=== PATIENT | female | born 1965 ===

== ENCOUNTER 2017-09-01 09:22 | Inpatient (IN) | payer OTHER ==
[2017-09-01] VITALS (12 sets, daily range): BP systolic 96–125; BP diastolic 56–64
[~2017-09-01] VITALS: Ht 174 cm; Wt 75.7 kg
[~2017-09-01 09:22] MED LIST: ceFAZolin sod 2 GM in D5W 110 ML IVPB ONE
[2017-09-01] MEDS ORDERED: WELLBUTRIN SR100 MG ORAL (10:07)
[2017-09-01] MEDS ORDERED: TOPIRAMATE100 MG ORAL (10:07)
[2017-09-01] MEDS ORDERED: TRAMADOL HCL50 MG ORAL (10:07)
[2017-09-01] MEDS ORDERED: IMITREX50 MG ORAL (10:07)
--- NOTE | 2017-09-01 11:32 | Pre-Procedure Note/Attestation ---
Pre-Procedure Note/Attestation Complete Prior to Procedure Procedure Narrative: EXTREME LATERAL INTERBODY FUSION L12 AND L23 WITH POSTERIOR INSTRUMENTATION AND FUSION Indications for Procedure Pre-Operative Diagnosis: THORACOLUMBAR KYPHOSIS AND SPONDYLOSIS, S/P PREVIOUS LUMBAR DECOMPRESION Attestation I attest that I discussed the nature of the procedure; its benefits; risks and complications; and alternatives (and the risks and benefits of such alternatives ), prior to the procedure, with the patient (or the patient's legal international account representative). I attest that, if there was a reasonable possibility of needing a blood transfusion, the patient (or the patient's legal international account representative) was given the [place] [facility] [employer] [facility] standardized written summary, pursuant to the [place] Blood Safety Act ([place] Health and Safety Code # 1645, as amended). I attest that I re-evaluated the patient just prior to the surgery and that there has been no change in the patient's H&P, except as documented below: ANNABEL MILLS Sep 01, 2017 11:32
[2017-09-01] MEDS ORDERED: Dexamethasone 4mg/ml vial ONE (11:44)
[2017-09-01] MEDS ORDERED: LR 1000ml 1,000 ML IVLG SCH (11:46)
--- NOTE | 2017-09-01 11:46 | Anethesia Preoperative Eval ---
Anesthesia Pre-op PMH/ROS General Date of Evaluation: Sep 01, 2017 Time of Evaluation: 12:34 Anesthesiologist: Cipriano ASA Score: ASA 2 Mallampati Score Class I : Soft palate, uvula, fauces, pillars visible Class II: Soft palate, uvula, fauces visible Class III: Soft palate, base of uvula visible Class IV: Only hard plate visible Mallampati Classification: Class I Surgeon: Steven Diagnosis: Back Pain Surgical Procedure: L1-2, L2-3 Exreme Lateral Fusion, Decompression Anesthesia History: none Family History: no anesthesia problems Allergies: Coded Allergies: No Known Allergies (Unverified , 08/29/17) Medications: see eMAR Past Medical History Neurologic/Psychiatric: Reports: other - Migranes PSxH Narrative: Cholecystectomy, Spine SX, Cervical Cyst SX Anesthesia Pre-op Phys. Exam Physician Exam Last Vital Signs Date Time Temp Pulse Resp B/P (MAP) Pulse Ox O2 Delivery O2 Flow Rate FiO2 09/01/17 10:31 98.2 52 20 112/62 98 Room Air 98.2 Constitutional: NAD Neurologic: CN 2-12 intact Cardiovascular: RRR Respiratory: CTA Gastrointestinal: S/NT/ND Airway Exam Mallampati Classification ASA 2 Mallampati Score: Class I MO: full ROM: full Teeth: intact Anesthesia Pre-op A/P Labs Urine Test Test 09/01/17 09:35 Urine HCG, Qualitative Negative (NEGATIVE) Risk Assessment & Plan Assessment: ASA 2 Plan: GA, BIS, GlideScope Status Change Before Surgery: No Pre-Antibiotics Dru Grams Ancef IV Given Within 1 Hr of Incision: Yes Time Given: 13:11 Danis Howell MD Sep 01, 2017 11:46
[2017-09-01] MEDS ORDERED: Midazolam 2mg/2ml Inj ONE (11:53)
[2017-09-01] MEDS ORDERED: fentaNYL 100 mcg/2 mL IV ONE ×3 (11:54→17:18)
[2017-09-01] MEDS ORDERED: Lidocaine 1% Plain 30 ml INJ ONE ×3 (11:57→16:41)
[2017-09-01] MEDS ORDERED: Sodium Chloride 10ml vial INJ ONE ×2 (11:58→17:58)
[2017-09-01] MEDS ORDERED: Labetalol 5mg/ml 20ml vial IV PRN (12:00)
[2017-09-01] MEDS ORDERED: Atropine Inj 1mg/10ml Syr IV PRN (12:00)
[2017-09-01] MEDS ORDERED: Acetaminophen (Non formulary) 100 ML IV ONE (12:00)
[2017-09-01] MEDS ORDERED: Ketorolac 30mg Inj IV PRN ×2 (12:00)
[2017-09-01] MEDS ORDERED: DiphenhydrAMINE 50mg/ml Inj IVP PRN (12:00)
[2017-09-01] MEDS ORDERED: HYDROcodone/Acetamin 7.5/325 tab ORAL PRN ×2 (12:00→22:00)
[2017-09-01] MEDS ORDERED: Midazolam 2mg/2ml Inj IVP PRN (12:00)
[2017-09-01] MEDS ORDERED: Norco 5mg/325mg tab ORAL PRN ×2 (12:00→22:00)
[2017-09-01] MEDS ORDERED: oxyCODONE HCL/Acetaminophen 5/325mg ORAL PRN (12:00)
[2017-09-01] MEDS ORDERED: fentaNYL 100 mcg/2 mL IV PRN (12:00)
[2017-09-01] MEDS ORDERED: LORazepam Inj 2mg/ml 1ml IV PRN (12:00)
[2017-09-01] MEDS ORDERED: Lidocaine 1% MPF 10mg/ml 5ml ONE (12:04)
[2017-09-01] MEDS ORDERED: Thrombin 5000 units TOPIC ONE (12:21)
[2017-09-01] MEDS ORDERED: Bacitracin 50000 Units Vial ONE (12:21)
[2017-09-01] MEDS ORDERED: Bupivacaine 0.5% Inj 30 ml vial INJ ONE (12:21)
[2017-09-01] MEDS ORDERED: Sterile Water Irrig 1000ml IRRIG ONE (12:30)
[2017-09-01] MEDS ORDERED: NS Irrig 1000ml ONE (12:30)
[2017-09-01] MEDS ORDERED: Zemuron 50mg/5ml Inj IV ONE (13:11)
--- NOTE | 2017-09-01 14:11 | Immediate Post-Op Evaluation ---
Immediate Post-Op Evalulation Immediate Post-Op Evalulation Procedure: L1-2, L2-3 Exreme Lateral Fusion, Decompression Date of Evaluation: Sep 01, 2017 Time of Evaluation: 20:20 IV Fluids: 1500 LR Blood Products: 0 Estimated Blood Loss: 150 Urinary Output: 300 Blood Pressure Systolic: 102 Blood Pressure Diastolic: 54 Pulse Rate: 96 Respiratory Rate: 16 O2 Sat by Pulse Oximetry: 100 Temperature (Fahrenheit): 98.4 Pain Score (1-10): 3 Nausea: No Vomiting: No Complications 0 Patient Status: awake, reacts, patent, extubated, none Hydration Status: adequate Dru Grams Ancef IV Given Within 1 Hr of Incision: Yes Time Given: 13:11 Danis Howell MD Sep 01, 2017 14:11
[2017-09-01] MEDS ORDERED: Ketamine 500mg Inj ONE (17:50)
--- NOTE | 2017-09-01 18:45 | Operative Note - Dictated ---
DATE OF OPERATION: 09/01/2017 SURGEONS: 1. Angel Morrison M.D. (for the approach). 2. Román Harris M.D. (for the spine procedure). ANESTHESIOLOGIST: Danis Howell M.D. ANESTHESIA: General endotracheal. PREOPERATIVE DIAGNOSIS: Disk disease, L1-L2 and L2-L3 (2 interspaces). POSTOPERATIVE DIAGNOSIS: Disk disease, L1-L2 and L2-L3 (2 interspaces). OPERATIVE PROCEDURE: 1. Muscle-sparing extreme lateral interbody fusion, L1-L2 and L2-L3, (2 interspaces). 2. Retroperitoneal and extrapleural mobilization of the diaphragm. 3. Resection of left twelfth rib. INFORMED CONSENT: The procedure of access for an extreme lateral interbody fusion was explained in detail to the patient preoperatively via the phone and repeated in the preoperative holding area. The risks including hemorrhage, infection, nerve injury, visceral injury, and pneumothorax were explained. The patient stated that she understood the procedure, its rationale and risks. She had no further questions and accepted the procedures outlined above. BACKGROUND INFORMATION: Indications for surgery, description of operative findings, and specimens removed will be contained in Dr. Harris's operative report. OPERATIVE FINDINGS PERTINENT TO ACCESS: All retroperitoneal structures were normal. All retropleural structures were normal. OPERATIVE PROCEDURE IN DETAIL: The patient was brought to the operating room in stable condition. Monitoring was instituted with arterial line, ECG, O2 saturation monitor, and blood pressure cuff. The circulation to the left lower extremity was monitored with a pulse oximeter. The patient was induced with anesthesia without any difficulty. The patient was placed in the right lateral decubitus position for a left lateral flank and lower chest incision. The patient was prepared and draped in sterile fashion. Under fluoroscopic guidance, each of the levels involved was marked at the skin. In order to reach two levels, one oblique incision was adequate. A slightly oblique incision was made for the L1-L3 levels. The subcutaneous tissue was divided using the electrocautery. The latissimus dorsi muscle was spared as much as possible using a muscle splitting and sparing technique. The twelfth rib was exposed. The tip of the twelfth rib was resected subperiosteally. The rib material was saved for use in the interbody prosthesis. The retropleural and retroperitoneal spaces were entered and connected by mobilizing the diaphragm off of the posterior and lateral attachments. The entirety of the procedure was subdiaphragmatic and extrapleural. Once the dissection was complete, the psoas muscle was identified in the depths of the wound. The fibers of the psoas muscle were in the direction of the fibers to spare as much of the psoas muscle as possible. Using fluoroscopic guidance along with neuromonitoring, the L2-L3 disk was identified and a K-wire placed. With a K-wire safely in place, the dilator system was placed over the K-wire using neuromonitoring for safety. The position was confirmed on fluoroscopy and the XLIF retractor was deployed. Using fluoroscopic guidance, the mid portion of the disk and the appropriate level were confirmed. Dr. Harris proceeded to perform the diskectomy, partial vertebrectomy, and fusion using the appropriate technique and hardware at the L2-L3 level. After the discectomy, partial vertebrectomy, and fusion were complete, the retractor system was removed carefully visualizing the area for hemostasis. The K-wire and dilator system was then moved to the L1-L2 level. The retractor system was deployed and the position confirmed on fluoroscopy and the safety assured with neuromonitoring. Dr. Harris proceeded to perform the diskectomy, vertebrectomy, and fusion using the appropriate technique and hardware at the L1-L2 level. Once the two diskectomies, partial vertebrectomies, and fusions was complete, the wound was irrigated with antibiotic solution. Inspection was carried out for hemostasis. Examination was made and no air leak was seen indicating that there was no pneumothorax. The peritoneal contents were allowed to come back to their normal anatomic position. The diaphragm and intercostal muscles were closed with a continuous suture of #1 PDS 2. The subcutaneous tissue and skin were closed with a continuous suture of 2-0 Vicryl. This was done in a subdermal/subcuticular fashion. The skin was further approximated with Steri-Strips and a sterile dressing was applied. Manual and visual sweeps were correct. Final sponge, needle, and instrument counts were verified as correct x2. ESTIMATED BLOOD LOSS: Approximately 50 mL. The patient will remain in the operating room under anesthesia, in stable condition and prepared for the posterior portion of the procedure. The left foot pulse oximeter showed a triphasic waveform with 99% oxygen saturation consistent with preoperative baseline. The dorsalis pedis and posterior tibial pulses were normal in both feet. Angel Morrison M.D. DR: Ruth JOB#: [id number] CC:
[2017-09-01] MEDS ORDERED: Vancomycin 1gm inj IVPB ONE (19:17)
--- NOTE | 2017-09-01 19:54 | Brief Operative Note ---
Immediate Post Operative Note Operative Note Pre-op Diagnosis: THORACOLUMBAR KYPHOSIS AND SPONDYLOSIS, S/P PREVIOUS LUMBAR DECOMPRESION Procedure: Xlif and posterior fusion at L1 to L3 Post-op Diagnosis: same as pre-op Findings: consistent w/pre-op dx studies Surgeon: LINA Collections Assistant: ARPAN Anesthesiologist: SÁNCHEZ Anesthesia: general Specimen: yes Complications: none Condition: stable Fluids: 1500CC Estimated Blood Loss: minimal - 150CC Drains: hemovac Implant(s) used?: Yes ANNABEL MILLS Sep 01, 2017 19:54
[2017-09-01] MEDS: Hydromorphone 0.5mg/0.5ml inj IVP PRN ×2 (20:19→20:48)
[2017-09-01] MEDS ORDERED: Naloxone 0.4mg/ml Inj IVP PRN (22:00)
[2017-09-01] MEDS: D5 1/2NS 1,000 ML IV SCH (22:52)
[2017-09-01] MEDS: ceFAZolin sod 1 GM in D5W 55 ML IV SCH (22:59)
[2017-09-02 04:00] VITALS: BP 115/57
[2017-09-02] MEDS: ceFAZolin sod 1 GM in D5W 55 ML IV SCH ×2 (05:36→14:25)
[2017-09-02 08:00] VITALS: BP 109/55
[2017-09-02] MEDS: Docusate 100mg cap ORAL SCH ×2 (08:26→17:25)
[2017-09-02] MEDS: D5 1/2NS 1,000 ML IV SCH ×3 (09:00→21:44)
[2017-09-02] MEDS ORDERED: D5 1/2NS 1000ml IV ONE (10:16)
[2017-09-02] MEDS ORDERED: Tubing IV Secondary IV ONE (10:16)
[2017-09-02 12:00] VITALS: BP 94/48
--- NOTE | 2017-09-02 12:15 | 48 Hour Post Anesthesia Eval ---
Post Anesthesia Evaluation Procedure: L1-2, L2-3 Exreme Lateral Fusion, Decompression Date of Evaluation: Sep 02, 2017 Time of Evaluation: 12:14 Blood Pressure Systolic: 109 0: 65 Pulse Rate: 72 Respiratory Rate: 22 Temperature (Fahrenheit): 97.2 O2 Sat by Pulse Oximetry: 98 Airway: patent Nausea: No Vomiting: No Pain Intensity: 3 Hydration Status: adequate Cardiopulmonary Status: stable Mental Status/LOC: patient returned to baseline Follow-up Care/Observations: n/a Post-Anesthesia Complications: none Follow-up care needed: N/A JACQUE ONOFRE M.D. Sep 02, 2017 12:15
--- NOTE | 2017-09-02 13:53 | History and Physical ---
History of Present Illness General Date patient seen: Sep 02, 2017 Present Illness HPI 52 year old female with hx of Migraine, previous back surgeries, admitted for lateral interbody fusion, L1-L2 and L2-L3. Post operatively pt is admitted to med/surg for post op treatment. Allergies: Coded Allergies: No Known Allergies (Unverified , 08/29/17) Medication History Scheduled Bupropion Sr* (Wellbutrin Sr*), 100 MG ORAL DA, (Reported) Sumatriptan Succinate* (Imitrex*), 50 MG ORAL NEEDED, (Reported) Topiramate* (Topamax*), 100 MG ORAL DAILY, (Reported) Scheduled PRN Tramadol Hcl* (Ultram*), 50 MG ORAL Q6H PRN for For Pain, (Reported) Patient History Healthcare decision maker Resuscitation status Full Code Advanced Directive on File Past Medical/Surgical History Past Medical/Surgical History: (1) Lumbar spondylosis Review of Systems All Other Systems: negative except mentioned in HPI Physical Exam General Appearance: WD/WN Lines, tubes and drains: peripheral HEENT: normocephalic, atraumatic Neck: non-tender, normal alignment Respiratory/Chest: chest wall non-tender, lungs clear Breasts: no masses Cardiovascular/Chest: normal peripheral pulses Abdomen: normal bowel sounds, non tender Genitourinary/Rectal: normal genital exam Extremities: normal range of motion, normal inspection Skin Exam: normal pigmentation Last 24 Hour Vital Signs Date Time Temp Pulse Resp B/P (MAP) Pulse Ox O2 Delivery O2 Flow Rate FiO2 09/02/17 12:15 207.0 72 22 98 09/02/17 12:00 98.4 68 17 94/48 97 98.4 09/02/17 08:00 97.5 72 18 109/55 95 97.5 09/02/17 04:24 99.0 09/02/17 04:00 98.2 96 20 115/57 97 Room Air 98.2 09/02/17 03:54 99.0 09/01/17 23:51 99.0 09/01/17 23:30 98.3 79 20 96/58 97 Nasal Cannula 2.0 98.3 09/01/17 22:30 98.2 86 20 97/59 97 Room Air 98.2 09/01/17 21:30 98.5 81 17 99/59 98 Nasal Cannula 2.0 98.5 09/01/17 21:18 99.0 09/01/17 21:15 99.0 65 18 115/62 100 Nasal Cannula 3.0 99.0 09/01/17 21:00 71 17 125/64 100 Nasal Cannula 3.0 09/01/17 20:48 66 19 117/62 100 Nasal Cannula 3.0 09/01/17 20:48 98.9 09/01/17 20:35 67 20 123/63 100 Nasal Cannula 3.0 09/01/17 20:30 72 20 119/59 100 Nasal Cannula 3.0 09/01/17 20:19 86 19 105/56 100 Simple Mask 6.0 09/01/17 20:19 98.9 09/01/17 20:14 86 19 103/57 100 Simple Mask 6.0 09/01/17 20:09 98.9 87 23 102/58 100 Simple Mask 6.0 98.9 09/01/17 20:09 209.1 96 16 100 Intake and Output 09/01/17 09/02/17 19:00 07:00 Intake Total 3355 ml Output Total 1280 ml Balance 2075 ml Intake Oral 440 ml IV Total 2915 ml Output Urine Total 1000 ml Drainage Total 130 ml Estimated Blood Loss 150 ml Height (Feet): 5 Height (Inches): 8.50 Weight (Pounds): 167 Medications Current Medications Medications (Trade) Dose Ordered Sig/Brendan Route PRN Reason Start Time Stop Time Status Last Admin Dose Admin Acetaminophen/ Hydrocodone Bitart ([place] 5/325) 1 tab Q3H PRN ORAL pain score 1-3 09/01/17 22:00 09/08/17 21:59 Acetaminophen/ Hydrocodone Bitart ([place] 7.5/325) 1 tab Q3H PRN ORAL pain score 4-6 09/01/17 22:00 09/08/17 21:59 Acetaminophen/ Hydrocodone Bitart ([place] 7.5/325) 2 tab Q3H PRN ORAL pain scale 7-10 09/01/17 22:00 09/08/17 21:59 Cefazolin Sodium 1 gm/Dextrose 55 ml @ 110 mls/hr EVERY 8 HOURS IV 09/01/17 23:00 09/02/17 14:29 09/02/17 05:36 Dextrose/Sodium Chloride 1,000 ml @ 100 mls/hr Q10H IV 09/01/17 23:00 10/01/17 22:59 09/02/17 10:20 Docusate Sodium (Colace) 100 mg TWICE A DAY ORAL 09/02/17 09:00 10/02/17 08:59 09/02/17 08:26 Hydromorphone HCl (Dilaudid) 1 mg Q4H PRN SUBQ Mild Pain (Pain Scale 1-3) 09/01/17 22:00 09/08/17 21:59 Hydromorphone HCl (Dilaudid) 2 mg HSPRN PRN SUBQ INSOMNIA DUE TO PAIN 09/01/17 22:00 09/08/17 21:59 Hydromorphone HCl (Dilaudid) 2 mg Q3H PRN SUBQ Severe Pain (Pain Scale 7-10) 09/01/17 11:45 09/08/17 11:44 09/02/17 13:24 Hydromorphone HCl (Dilaudid) 2 mg Q4H PRN SUBQ Moderate Pain (Pain Scale 4-6) 09/01/17 22:00 09/08/17 21:59 Naloxone HCl (Narcan) 0.1 mg PRN PRN IVP RR<12/min, pt unarousable 09/01/17 22:00 10/01/17 21:59 Assessment/Plan Problem List: (1) lateral interbody fusion, L1-L2 and L2-L3 (2) Lumbar spondylosis ICD Codes: M47.816 - Spondylosis without myelopathy or radiculopathy, lumbar region SNOMED: [id number] Assessment/Plan symptomatic treatment post op care analgesics dvt prophylaxis Pearl Dixon MD Sep 02, 2017 13:53
[2017-09-02 16:00] VITALS: BP 94/48
--- NOTE | 2017-09-02 18:15 | General Progress Note ---
Progress Note Progress Note DOING WELL NO LEG PAIN LBP CONTROLLED WITH MEDS AVSS A AND O TIMES 3 5/5 IN THE LE INTACT LT CALVES SOFT AND NT DRESSING CDI HV 150 DOING WELL OOB AND PT LABS MEDICINE FU PAIN MANAGEMENT ANNABEL MILLS Sep 02, 2017 18:15
--- NOTE | 2017-09-02 18:44 | Diagnostic Imaging Report ---
Indication: Fluoroscopic images from spinal surgery. Technique: Multiple fluoroscopic images from spinal surgery submitted for archival the PACS. Operating surgeon: Steven Total fluoroscopy time: 173.5 seconds Total fluoroscopy dose 36.4 mGy Findings: Multiple fluoroscopic operative images from spinal surgery (posterior instrumented fusion) submitted for archival the PACS. Impression: Intraoperative fluoroscopic images from spinal surgery. Please see operative report.
[2017-09-02 19:08] LABS: BASOPHILS % (AUTO) 0.7 % (0.0-2.0); EOSINOPHILS % (AUTO) 2.7 % (0.0-3.0); HEMATOCRIT 33.3 % (37.0-47.0); HEMOGLOBIN 11.7 G/DL (12.0-16.0); LYMPHOCYTES % (AUTO) 18.7 % (20.0-45.0); MEAN CORPUSCULAR VOLUME 89 FL (80-99); MONOCYTES % (AUTO) 10.9 % (1.0-10.0); PLATELET COUNT 226 K/UL (150-450); RED BLOOD COUNT 3.76 M/UL (4.20-5.40); WHITE BLOOD COUNT 9.9 K/UL (4.8-10.8)
[2017-09-02 20:00] VITALS: BP 111/75
[2017-09-03] VITALS: BP 100/50
[2017-09-03] MEDS: HYDROcodone/Acetamin 7.5/325 tab ORAL PRN ×4 (01:11→15:03)
[2017-09-03 04:00] VITALS: BP 93/49
[2017-09-03 08:00] VITALS: BP 105/55
[2017-09-03] MEDS: Docusate 100mg cap ORAL SCH ×2 (08:22→17:35)
[2017-09-03] MEDS: D5 1/2NS 1,000 ML IV SCH (08:23)
--- NOTE | 2017-09-03 09:25 | Pulmonology Progress Note ---
Assessment/Plan Problems: (1) lateral interbody fusion, L1-L2 and L2-L3 (2) Lumbar spondylosis Assessment/Plan pain controlled all reviewed symptomatic treatment Subjective ROS Limited/Unobtainable: No Allergies: Coded Allergies: No Known Allergies (Unverified , 08/29/17) Objective Last 24 Hour Vital Signs Date Time Temp Pulse Resp B/P (MAP) Pulse Ox O2 Delivery O2 Flow Rate FiO2 09/03/17 04:00 100.0 76 18 93/49 98 Room Air 100.0 09/03/17 00:00 99.5 78 17 100/50 97 Room Air 99.5 09/02/17 20:00 100.1 75 18 111/75 97 Room Air 100.1 09/02/17 16:00 98.4 68 17 94/48 97 98.4 09/02/17 12:15 207.0 72 22 98 09/02/17 12:00 98.4 68 17 94/48 97 98.4 Intake and Output 09/02/17 09/03/17 19:00 07:00 Intake Total 1705 ml 480 ml Output Total 1250 ml 60 ml Balance 455 ml 420 ml Intake Oral 850 ml 480 ml IV Total 855 ml Output Urine Total 1250 ml Drainage Total 60 ml # Voids 1 2 Objective General Appearance: WD/WN HEENT: normocephalic, atraumatic Respiratory/Chest: chest wall non-tender, lungs clear Cardiovascular: normal rate Genitourinary: normal external genitalia Extremities: no clubbing Skin: no rash Microbiology Date/Time Source Procedure Growth Status 09/01/17 10:20 Nasal Nares MRSA Culture - Final NO METHICILLIN RESISTANT STAPH AUREUS... Complete Laboratory Tests 09/02/17 18:35: White Blood Count 9.9, Red Blood Count 3.76L, Hemoglobin 11.7L, Hematocrit 33.3L , Mean Corpuscular Volume 89, Mean Corpuscular Hemoglobin 31.2H, Mean Corpuscular Hemoglobin Concent 35.2, Red Cell Distribution Width 11.0L, Platelet Count 226, Mean Platelet Volume 6.3L, Neutrophils (%) (Auto) 67.0, Lymphocytes (%) (Auto) 18.7L, Monocytes (%) (Auto) 10.9H, Eosinophils (%) (Auto ) 2.7, Basophils (%) (Auto) 0.7 Current Medications Medications (Trade) Dose Ordered Sig/Brendan Route PRN Reason Start Time Stop Time Status Last Admin Dose Admin Acetaminophen/ Hydrocodone Bitart ([place] 5/325) 1 tab Q3H PRN ORAL pain score 1-3 09/01/17 22:00 09/08/17 21:59 Acetaminophen/ Hydrocodone Bitart ([place] 7.5/325) 1 tab Q3H PRN ORAL pain score 4-6 09/01/17 22:00 09/08/17 21:59 Acetaminophen/ Hydrocodone Bitart ([place] 7.5/325) 2 tab Q3H PRN ORAL pain scale 7-10 09/01/17 22:00 09/08/17 21:59 09/03/17 04:32 Dextrose/Sodium Chloride 1,000 ml @ 100 mls/hr Q10H IV 09/01/17 23:00 10/01/17 22:59 09/03/17 08:23 Docusate Sodium (Colace) 100 mg TWICE A DAY ORAL 09/02/17 09:00 10/02/17 08:59 09/03/17 08:22 Hydromorphone HCl (Dilaudid) 1 mg Q4H PRN SUBQ Mild Pain (Pain Scale 1-3) 09/01/17 22:00 09/08/17 21:59 Hydromorphone HCl (Dilaudid) 2 mg HSPRN PRN SUBQ INSOMNIA DUE TO PAIN 09/01/17 22:00 09/08/17 21:59 Hydromorphone HCl (Dilaudid) 2 mg Q3H PRN SUBQ Severe Pain (Pain Scale 7-10) 09/01/17 11:45 09/08/17 11:44 09/03/17 08:23 Hydromorphone HCl (Dilaudid) 2 mg Q4H PRN SUBQ Moderate Pain (Pain Scale 4-6) 09/01/17 22:00 09/08/17 21:59 09/02/17 23:40 Naloxone HCl (Narcan) 0.1 mg PRN PRN IVP RR<12/min, pt unarousable 09/01/17 22:00 10/01/17 21:59 Pearl Dixon MD Sep 03, 2017 09:25
[2017-09-03 12:00] VITALS: BP 98/60
[2017-09-03 16:00] VITALS: BP 106/50
[2017-09-03 20:00] VITALS: BP 137/58
--- NOTE | 2017-09-03 21:00 | Operative Note - Dictated ---
DATE OF OPERATION: 09/01/2017 PART 2 DICTATION PREOPERATIVE DIAGNOSES: Status post lumbar decompression, L1-L2 and L2-L3 spondylosis with significant kyphosis, and disk collapse at L1-L2 and L2-L3 with lower extremity radiculopathy. POSTOPERATIVE DIAGNOSES: Status post lumbar decompression, L1-L2 and L2-L3 spondylosis with significant kyphosis, and disk collapse at L1-L2 and L2-L3 with lower extremity radiculopathy. PROCEDURE PERFORMED: 1. Posterior segmental pedicle screw instrumentation at L1, L2, and L3. 2. Posterolateral arthrodesis at L1-L2 and L2-L3. 3. Use of allograft and local autograft for arthrodesis at L1-L2 and L2-L3. SURGEON: Román Harris M.D. [employer] SUPERVISOR: Mesfin Dunlap M.D. ANESTHESIA: General endotracheal anesthesia. ANESTHESIOLOGIST: Danis Howell M.D. INTRAOPERATIVE FINDINGS: 1. Spondylosis at L1-L2 and L2-L3 with facet hypertrophy. 2. Evidence of previous laminotomy at left L2-L3. ESTIMATED BLOOD LOSS: Total 200 mL. FLUIDS: Total 1800 of crystalloid. INDICATIONS: The patient previously today underwent extreme lateral interbody fusion at L1-L2 and L2-L3. The flank incision on the left side was closed by Dr. Morrison to see the posterior part of the surgery. Risks, alternatives, and benefits were discussed with the patient and previously dictated in part 1 of my dictation. DESCRIPTION OF OPERATION: Once the flank incision was closed, the patient was gently turned in the supine position. The lower and upper extremities were evaluated and checked, but there was no pressure ulcers. At this point, the patient continued to be monitored by SSEP, MEP was also done as well as EMGs. Barrett was in place. Sequential compression devices were in place. The patient now was turned prone onto the Uvaldo frame table. All bony prominences were well padded and at this point, preoperative fluoroscopy was used to plan the incision overlying L1, L2, and L3. Once this was done, the patient's back was prepped and draped in the usual sterile fashion with alcohol, chlorhexidine scrub, ChloraPrep, and Ioban draping . Myself and my instructional support assistant, Dr. Dunlap, were prepped and gowned and at this point, the intraoperatively sterilely draped microscope was brought into the field and a midline incision was carried out overlying L1, L2, and L3. Monopolar cautery was used to do a subperiosteal dissection including the transverse processes at L1, L2, and L3. Once this was accomplished, attention was paid to the L2-L3 interspace. The previous laminotomy was done at L2-L3 and that area was not disturbed and dissection of the mammillary processes was done bilaterally at L1, L2, and L3. Radiopaque markers were placed and the levels were verified. At this point, attention was diverted to placing the pedicle screws. A high-speed drill was used at the level of the mammillary processes and via biplanar fluoroscopy and the use of a pedicle probe, the center of the pedicles were probed under biplanar fluoroscopy at bilateral L1, on the right L2, and bilateral L3. The left L2 pedicle was not probed preoperatively, that pedicle was found to be too small and sclerotic to accept a pedicle screw safely. Once the pedicles were probed, ball tips were used and were found to have no cortical breaches. Attention was first diverted to putting the pedicle screws in at L1. Appropriately-sized caps were used and the following pedicle screws from the [employer] system was used, a 4.5 x 45 mm screws were placed bilaterally at L1. Each screw had excellent purchase and looked well-positioned on AP and lateral fluoroscopy. The right L2 pedicle was tapped as well and a 4.5 x 45 mm screw was placed, which had excellent purchase and at L3 bilaterally, the pedicles were tapped and 5.0 x 45 mm screws were placed successfully. Stimulus-evoked EMG was done. Each screw was found to be safe and at this point, appropriately-sized 90 mm and 95 mm rods were placed and set screws were placed and were torqued appropriately. A complete decortication at L1, L2, and L3 was done and the spinous processes which were kyphotic and protruding were removed at L2 and L3 and partially at L1. This bone now was used for local autograft for the posterolateral fusion and [id number] was used as well. Please note that upon entry through the dermis, a large bursa was found overlying L2 and L3, which was removed during the exposure. Now, final AP and lateral fluoroscopy was done. Before the bone graft was placed, the wound was copiously irrigated with Triple Antibiotic solution. Subsequently, bone graft was placed and now the dorsal lumbar fascia was closed with #1 Vicryl sutures in watertight fashion. The subdermal and subcuticular layers were closed with 2-0 Vicryl sutures. The skin was closed with Dermabond. Sterile dressing and tape were placed. All sponge, needle, and instrument counts were correct. The patient was turned supine, was extubated in stable condition, was taken to the recovery room in stable condition, and found to be neurovascularly intact. She was admitted to the hospital for monitoring. Román Harris M.D. DR: PHAM JOB#: [id number] CC:
--- NOTE | 2017-09-03 21:18 | General Progress Note ---
Progress Note Progress Note DOING WELL. NO LEG PAIN MILD LBP AVSS TEMP MAX 100.1 INC'S CDI DRESSING CHANGED 5/5 MOTOR IN THE LE CALVES SOFT AND NT ABD SOFT H/H STABLE FROM LAST NIGHT DOING WELL ON POD 2 OOB PT BRACE HV PULLED DC TOMORROW IF AFEBRILE ANNABEL MILLS Sep 03, 2017 21:18
--- NOTE | 2017-09-03 22:00 | Operative Note - Dictated ---
DATE OF OPERATION: 09/01/2017 PREOPERATIVE DIAGNOSES: Status post lumbar decompression with L1-L2 and L2-L3 spondylosis with significant kyphosis and disk height collapse at L1-L2 and L2-L3 with lower extremity radiculopathy. POSTOPERATIVE DIAGNOSES: Status post lumbar decompression with L1-L2 and L2-L3 spondylosis with significant kyphosis and disk height collapse at L1-L2 and L2-L3 with lower extremity radiculopathy. PROCEDURE PERFORMED: 1. Interbody fusion at L1-L2 and L2-L3. 2. Placement of PEEK biomechanical device at L1-L2 and L2-L3. 3. Use of allograft and local autograft for arthrodesis at L1-L2 and L2-L3. SURGEON: Román Harris M.D. CO-SURGEON: Angel Morrison M.D. MORTGAGE PROCESSING MANAGER SURGEON: Mesfin Dunlap M.D. ANESTHESIA: General endotracheal anesthesia. ANESTHESIOLOGIST: Dr. Howell. INTRAOPERATIVE FINDINGS: Disk height collapse, spondylosis, kyphosis at L1-L2 and L2-L3. ESTIMATED BLOOD LOSS: Total was 200 mL. FLUIDS: A 1800 of crystalloid. INDICATIONS: The patient had failed nonoperative treatment as well as previous lumbar decompression. She had ongoing symptoms with low back pain and lower extremity radicular pain. The pain was affecting her activities of daily living and functional capacity and option for above treatment was given to the patient. Risks, alternatives, and benefits were discussed with the patient. Risks include anesthesia complications including , medical complications including liver, kidney, cardiopulmonary deficits, bleeding, infection, dural tear, CSF leak, nerve root injury, pars fracture, instability, reherniation, screw cutoff, screw failure, spinal cord injuries, paralysis as well as other complications. The patient understood and wished to proceed. DESCRIPTION OF OPERATION: The patient was brought into the operating room, supine on a stretcher. Subsequently, appropriate IV lines were placed. A 2 g of Ancef was administered. A surgical time-out was called. Anesthesia was induced and the patient was successfully intubated. Sequential compression devices were placed. A Barrett was placed under sterile conditions. At this point, positioning of the patient was done with the help of Dr. Morrison. The patient was placed in the lateral decubitus position on a radiolucent table. The lower extremities were well-padded with pillows. The peroneal nerve was assured to be free and not compressed. The arms were placed on pillows and all bony prominences were well padded. The legs were flexed approximately 45 to 60 degrees and the knee was flexed as well and was taped into place. At this point, lateral fluoroscopy and AP fluoroscopy was taken to plan the incision over the L1-L2 and L2-L3 interspaces and the incision was marked out by Dr. Morrison. At this point, the left flank area was prepped and draped in usual sterile fashion. The patient was in the lateral decubitus position with the left side up. The patient was prepped with alcohol, chlorhexidine scrub, ChloraPrep, and Ioban draping. At this point, myself and Dr. Morrison as well as Dr. Dunlap were scrubbed and Dr. Morrison made an incision and did an extreme lateral approach to the interspaces at L1-L2 and L2-L3 levels. This will be separately dictated by him in his operative report. Once this was completed, attention was diverted to placement of the retractors and K-wire. The K-wire from the [employer] system as well as the guide for the K-wires, which were subsequently placed initially at the L2-L3 disk space and the [employer] retractor system was used to expose the lateral interbody space at L2-L3. Before the retractor was placed, the guidewires were hooked up to three running EMGs and the probe was rotated 360 degrees and there was no conduction in the lumbar plexus at 20 milliamps of current. Also, please note that before the patient was positioned, the patient was hooked up to free-running EMG, SSEP by the Neurophysiology facility technician as well as myself and Dr. Morrison with the neurophysiological leads from the [employer] system. Please note that throughout the case, the SSEP and EMGs remained stable and there were no worrisome recordings. At this point, a K-wire was placed in the disk space at L2-L3. The retractor was successfully opened with no nerve activity and now attention was diverted to the radical diskectomy at L2-L3. AP and lateral fluoroscopy was taken and revealed the retractor system from the [employer] system to be in excellent position. At this point, a #15 blade was used to make an annulotomy laterally at L2-L3 and with the use of a Fox elevator, rasp, box curette as well as pituitary rongeurs, a radical diskectomy at L2-L3 was accomplished. Endplate cartilage was removed. Endplate bone was preserved and at this point, attention was diverted to using the trials. An 8-mm small footprint trial from the [employer] system was placed at L2-L3 and was found to recreate disk height well and closed the endplate successfully. At this point, a PEEK interbody spacer, small footprint 8 mm in height lordotic was chosen, was packed with bone morphogenetic protein, allograft as well as local autograft from the rib, which was removed by Dr. Morrison and this biomechanical device was gently tamped into place at L2-L3 with excellent recreation of disk height, improvements in sagittal alignment at L2-L3, and excellent apposition against the endplate. AP and lateral fluoroscopy revealed the device to be in excellent position. Now, the retractor was moved to the L1-L2 level by Dr. Morrison. Free-running EMGs were done with the guide and the guidewire, and were deemed safe. Now the retractor was open in the same order of events and with the same instruments, a radical diskectomy was done at L1-L2. A small footprint 10-mm trial from the [employer] system was placed and was found to be sitting well into the interbody space at L1-L2. Now a PEEK interbody device 8 mm in height and 45 mm long lordotic with small footprint was chosen, was packed with bone morphogenic protein, Delphos allograft, and local autograft and was tamped into place at L1-L2 with good recreation of disk height and improvement in sagittal alignment. AP and lateral fluoroscopy revealed the device to have subtly subsided, however, the device was stable and was deemed better to leave it in place the way it was. Once this was accomplished, attention was diverted to closure. The wound was copiously irrigated with Triple Antibiotic solution. Final AP and lateral fluoroscopy revealed instrumentation to be in good position. The wound closure was done by Dr. Morrison and will be separately dictated by him and now I will dictate the posterior portion of the surgery. Román Harris M.D. DR: KATY JOB#: [id number] CC: DOC
--- NOTE | 2017-09-03 22:00 | Operative Note - Dictated ---
DATE OF OPERATION: 09/01/2017 PART 2 DICTATION PREOPERATIVE DIAGNOSES: Status post lumbar decompression, L1-L2 and L2-L3 spondylosis with significant kyphosis, and disk height collapse at L1-L2 and L2-L3 with lower extremity radiculopathy. POSTOPERATIVE DIAGNOSES: Status post lumbar decompression, L1-L2 and L2-L3 spondylosis with significant kyphosis, and disk height collapse at L1-L2 and L2-L3 with lower extremity radiculopathy. PROCEDURE PERFORMED: 1. Posterior segmental pedicle screw instrumentation at L1, L2, and L3. 2. Posterolateral arthrodesis at L1-L2 and L2-L3. 3. Use of allograft and local autograft for arthrodesis at L1-L2 and L2-L3. SURGEON: Román Harris M.D. COATINGS INSPECTOR: Mesfin Dunlap M.D. ANESTHESIA: General endotracheal anesthesia. ANESTHESIOLOGIST: Danis Howell M.D. INTRAOPERATIVE FINDINGS: 1. Spondylosis at L1-L2 and L2-L3 with facet hypertrophy. 2. Evidence of previous laminotomy at left L2-L3. ESTIMATED BLOOD LOSS: Total 200 mL. FLUIDS: Total 1800 of crystalloid. INDICATIONS: The patient previously today underwent extreme lateral interbody fusion at L1-L2 and L2-L3. The flank incision on the left side was closed by Dr. Morrison to see the posterior part of the surgery. Risks, alternatives, and benefits were discussed with the patient and previously dictated in part 1 of my dictation. DESCRIPTION OF OPERATION: Once the flank incision was closed, the patient was gently turned in the supine position. The lower and upper extremities were evaluated and checked, but there was no pressure ulcers. At this point, the patient continued to be monitored by SSEP, MEP was also done as well as EMGs. Barrett was in place. Sequential compression devices were in place. The patient now was turned prone onto the Uvaldo frame table. All bony prominences were well padded and at this point, preoperative fluoroscopy was used to plan the incision overlying L1, L2, and L3. Once this was done, the patient's back was prepped and draped in the usual sterile fashion with alcohol, chlorhexidine scrub, ChloraPrep, and Ioban draping . Myself and my programs assistant, Dr. Dunlap, were prepped and gowned and at this point, the intraoperatively sterilely draped microscope was brought into the field and a midline incision was carried out overlying L1, L2, and L3. Monopolar cautery was used to do a subperiosteal dissection including the transverse processes at L1, L2, and L3. Once this was accomplished, attention was paid to the L2-L3 interspace. The previous laminotomy was done at L2-L3 and that area was not disturbed and dissection of the mammillary processes was done bilaterally at L1, L2, and L3. Radiopaque markers were placed and the levels were verified. At this point, attention was diverted to placing the pedicle screws. A high-speed drill was used at the level of the mammillary processes and via biplanar fluoroscopy and the use of a pedicle probe, the center of the pedicles were probed under biplanar fluoroscopy at bilateral L1, on the right L2, and bilateral L3. The left L2 pedicle was not probed preoperatively, that pedicle was found to be too small and sclerotic to accept a pedicle screw safely. Once the pedicles were probed, ball tips were used and were found to have no cortical breaches. Attention was first diverted to putting the pedicle screws in at L1. Appropriately-sized caps were used and the following pedicle screws from the [employer] system was used, a 4.5 x 45 mm screws were placed bilaterally at L1. Each screw had excellent purchase and looked well-positioned on AP and lateral fluoroscopy. The right L2 pedicle was tamped as well and a 4.5 x 45 mm screw was placed, which had excellent purchase and at L3 bilaterally, the pedicles were tamped and 5.0 x 45 mm screws were placed successfully. Stimulus-evoked EMG was done. Each screw was found to be safe and at this point, appropriately-sized 90 mm and 95 mm rods were placed and set screws were placed and were torqued appropriately. A complete decortication at L1, L2, and L3 was done and the spinous processes which were kyphotic and protruding were removed at L2 and L3 and partially at L1. This bone now was used for local autograft for the posterolateral fusion and [id number] was used as well. Please note that upon entry through the dermis, a large bursa was found overlying L2 and L3, which was removed during the exposure. Now, final AP and lateral fluoroscopy was done. Before the bone graft was placed, the wound was copiously irrigated with Triple Antibiotic solution. Subsequently, bone graft was placed and now the dorsal lumbar fascia was closed with #1 Vicryl sutures in watertight fashion. The subdermal and subcuticular layers were closed with 2-0 Vicryl sutures. The skin was closed with Dermabond. Sterile dressing and tape were placed. All sponge, needle, and instrument counts were correct. The patient was turned supine, was extubated in stable condition, was taken to the recovery room in stable condition, and found to be neurovascularly intact. She was admitted to the hospital for monitoring. Román Harris M.D. DR: PHAM JOB#: [id number] CC:
[2017-09-04] VITALS: BP 104/61
[2017-09-04] MEDS: HYDROcodone/Acetamin 7.5/325 tab ORAL PRN ×4 (01:21→20:24)
[2017-09-04] MEDS: D5 1/2NS 1,000 ML IV SCH ×3 (01:25→20:24)
[2017-09-04 04:00] VITALS: BP 130/78
[2017-09-04 08:00] VITALS: BP 103/57
[2017-09-04] MEDS: Docusate 100mg cap ORAL SCH ×2 (08:18→17:37)
[2017-09-04 12:00] VITALS: BP 104/57
[2017-09-04 16:00] VITALS: BP 94/51
[2017-09-04 20:00] VITALS: BP 92/51
--- NOTE | 2017-09-04 21:36 | Pulmonology Progress Note ---
Assessment/Plan Problems: (1) lateral interbody fusion, L1-L2 and L2-L3 (2) Lumbar spondylosis Assessment/Plan pain controlled all reviewed symptomatic treatment Subjective Allergies: Coded Allergies: No Known Allergies (Unverified , 08/29/17) Objective Last 24 Hour Vital Signs Date Time Temp Pulse Resp B/P (MAP) Pulse Ox O2 Delivery O2 Flow Rate FiO2 09/04/17 20:00 98.8 79 20 92/51 98 Room Air 98.8 09/04/17 16:00 99.2 69 19 94/51 99 99.2 09/04/17 12:00 99.1 81 20 104/57 100 99.1 09/04/17 10:25 99.5 99.5 09/04/17 08:50 99.7 99.7 09/04/17 08:00 97.9 84 20 103/57 97.9 09/04/17 04:00 98.0 87 19 130/78 98 Room Air 98.0 09/04/17 00:00 99.1 69 18 104/61 97 Room Air 99.1 Intake and Output 09/03/17 09/04/17 19:00 07:00 Intake Total 1400 ml 980 ml Output Total 0 ml 10 ml Balance 1400 ml 970 ml Intake Oral 480 ml IV Total 700 ml 500 ml Other 700 ml Stool Total 0 ml Drainage Total 10 ml # Voids 5 4 Objective General Appearance: WD/WN HEENT: normocephalic, atraumatic Respiratory/Chest: chest wall non-tender, lungs clear Cardiovascular: normal rate Genitourinary: normal external genitalia Extremities: no clubbing Skin: no rash Current Medications Medications (Trade) Dose Ordered Sig/Brendan Route PRN Reason Start Time Stop Time Status Last Admin Dose Admin Acetaminophen/ Hydrocodone Bitart ([place] 5/325) 1 tab Q3H PRN ORAL pain score 1-3 09/01/17 22:00 09/08/17 21:59 Acetaminophen/ Hydrocodone Bitart ([place] 7.5/325) 1 tab Q3H PRN ORAL pain score 4-6 09/01/17 22:00 09/08/17 21:59 Acetaminophen/ Hydrocodone Bitart ([place] 7.5/325) 2 tab Q3H PRN ORAL pain scale 7-10 09/01/17 22:00 09/08/17 21:59 09/04/17 20:24 Dextrose/Sodium Chloride 1,000 ml @ 100 mls/hr Q10H IV 09/01/17 23:00 10/01/17 22:59 09/04/17 20:24 Docusate Sodium (Colace) 100 mg TWICE A DAY ORAL 09/02/17 09:00 10/02/17 08:59 09/04/17 17:37 Hydromorphone HCl (Dilaudid) 1 mg Q4H PRN SUBQ Mild Pain (Pain Scale 1-3) 09/01/17 22:00 09/08/17 21:59 Hydromorphone HCl (Dilaudid) 2 mg HSPRN PRN SUBQ INSOMNIA DUE TO PAIN 09/01/17 22:00 09/08/17 21:59 Hydromorphone HCl (Dilaudid) 2 mg Q3H PRN SUBQ Severe Pain (Pain Scale 7-10) 09/01/17 11:45 09/08/17 11:44 09/04/17 21:29 Hydromorphone HCl (Dilaudid) 2 mg Q4H PRN SUBQ Moderate Pain (Pain Scale 4-6) 09/01/17 22:00 09/08/17 21:59 09/02/17 23:40 Naloxone HCl (Narcan) 0.1 mg PRN PRN IVP RR<12/min, pt unarousable 09/01/17 22:00 10/01/17 21:59 Pearl Dixon MD Sep 04, 2017 21:35
[2017-09-05] VITALS: BP 95/50
[2017-09-05 04:00] VITALS: BP 95/52
[2017-09-05] MEDS: HYDROcodone/Acetamin 7.5/325 tab ORAL PRN ×3 (05:09→11:24)
[2017-09-05] MEDS: D5 1/2NS 1,000 ML IV SCH (06:46)
[2017-09-05 08:00] VITALS: BP 91/41
[2017-09-05 08:05] VITALS: BP 91/41
[2017-09-05] MEDS: Docusate 100mg cap ORAL SCH (08:36)
[2017-09-05 09:00] VITALS: BP 98/80
[2017-09-05] MEDS ORDERED: Milk of Magnesia 30ml Ud ORAL PRN (09:15)
--- NOTE | 2017-09-06 19:00 | Discharge Summary ---
Discharge Summary Hospital Course Date of Admission Sep 01, 2017 at 09:22 Date of Discharge Sep 05, 2017 at 11:49 Admitting Diagnosis RADHA Zazueta is a 52 year old female who was admitted on Sep 01, 2017 at 09:22 for PAIN Hospital Course [id number] Discharge Discharge Disposition Patient was discharged to Home (01) Bessie Lee NP Sep 06, 2017 19:00
--- NOTE | 2017-09-06 20:15 | Discharge Summary 2 SIG ---
DATE OF ADMISSION: 09/01/2017 DATE OF DISCHARGE: 09/05/2017 911 DISPATCHER: Pearl Dixon M.D. BRIEF HOSPITAL COURSE: The patient is a 52-year-old female with history of migraine and previous back surgeries, was admitted for lateral interbody fusion at L1-L2 and L2-L3. Postoperatively, she was admitted for postop management. She was placed on SCDs for DVT prophylaxis. Diet was eventually advanced. Barrett catheter was discontinued. She received PT and OT evaluation. Postoperatively, she had mild fever. H and H was stable. She was encouraged out of bed. Hemovac was eventually discontinued. Incision was clean, dry, and intact. Motor strength was 5/5 bilaterally. She eventually defervesced. She was then cleared for discharge home. FINAL DIAGNOSES: 1. Lateral interbody fusion, L1-L2 and L2-L3. 2. Lumbar spondylosis. Refer to operative report. DISCHARGE DISPOSITION: The patient was discharged home. DISCHARGE MEDICATIONS: Refer to medication list. DISCHARGE INSTRUCTIONS: Follow up in a week. Román Harris M.D. I have been assigned to dictate discharge summary on this account and I was not involved in the patient's management. Bessie Lee N.P. DR: SHARRI JOB#: [id number] CC:
== END 2017-09-05 11:49 | disposition home or self-care (01) | DRG 455 ==
LOC: SDSOVERFLO 09:22 → 3E 20:20
PROC: 0SG10J1 Fusion of 2 or more Lumbar Vertebral Joints with Synthetic Substitute, Posterior Approach, Posterior Column, Open Approach (ICD-10-PCS; principal; 2017-09-01 11:00)
PROC: 0SG00A0 Fusion of Lumbar Vertebral Joint with Interbody Fusion Device, Anterior Approach, Anterior Column, Open Approach (ICD-10-PCS; principal; 2017-09-01 11:00)
PROC: 0SB20ZZ Excision of Lumbar Vertebral Disc, Open Approach (ICD-10-PCS; principal; 2017-09-01 11:00)
DX: M47.26 Other spondylosis with radiculopathy, lumbar region (principal); M40.205 Unspecified kyphosis, thoracolumbar region; M51.16 Intervertebral disc disorders with radiculopathy, lumbar region; M79.7 Fibromyalgia; F17.200 Nicotine dependence, unspecified, uncomplicated; V89.2XXS Person injured in unspecified motor-vehicle accident, traffic, sequela
CPT/HCPCS: 36415; 72020; 76001; 81025; 85025; 86850; 86900; 86901; 86920; 87081; 94003; 94150; J2250; J2405